=== PATIENT | male | born 1965 | race African-American/Black ===

== ENCOUNTER 2017-02-17 17:46 | Emergency (ER) | payer OTHER ==
[2017-02-17 17:51] VITALS: PULSE 103; TEMP 99.2; BMI 39.0
--- NOTE | 2017-02-17 18:44 | PDOC ---
History of Present Illness - General History Source: Patient Exam Limitations: No Limitations - History of Present Illness Initial Comments: 02/17/17 19:07 The patient is a 51 year old male, with a significant past medical history of hypertension, diabetes, who presents to the emergency department with complaints of an episode of vertigo earlier this morning, and nasal congestion. The patient reports that today when he woke up he had one episode of vertigo which lasted a few seconds before subsiding. He reports that later on in the day he stood up suddenly and felt a lightheaded sensation which he described as being off balance. He notes that he had an upper respiratory infection about a month ago which has not completely gone away. He has been taking mucinex for his congestion. He denies chest pain, shortness of breath, and headache. He denies fever, chills , nausea, vomit, diarrhea and constipation. Allergies: None Social history: occasional drinker, non smoker PCP: Dr Eden <Georgia Lora - Last Filed: 02/17/17 19:07> <Asya Lizarraga - Last Filed: 02/18/17 02:01> - General Chief Complaint: Lightheaded Stated Complaint: PAIN Time Seen by Provider: 02/17/17 18:12 Past History <Georgia Lora - Last Filed: 02/17/17 19:07> - Past Medical History COPD: No Diabetes: Yes HTN: Yes - Suicide/Smoking/Psychosocial Hx Smoking History: Never smoked Hx Alcohol Use: Yes (SOCIAL) Drug/Substance Use Hx: No Substance Use Type: None <Asya Lizarraga - Last Filed: 02/18/17 02:01> - Past Medical History Allergies/Adverse Reactions: Allergies Allergy/AdvReac Type Severity Reaction Status Date / Time No Known Allergies Allergy Verified 02/17/17 17:52 Home Medications: Ambulatory Orders Amlodipine Besylate [Norvasc -] 10 mg PO DAILY 02/17/17 Aspirin [Ecotrin] 81 mg PO DAILY 02/17/17 Atorvastatin Ca [Lipitor] 0 mg PO HS 02/17/17 Glimepiride 0 mg PO DAILY 02/17/17 Losartan Potassium [Cozaar -] 0 mg PO DAILY 02/17/17 Meclizine HCl [Antivert -] 25 mg PO QID PRN #12 tablet 02/17/17 Metformin HCl [Metformin HCl ER] 1,000 mg PO BID 02/17/17 Review of Systems - Review of Systems Able to Perform ROS?: Yes Comments:: 02/17/17 19:08 CONSTITUTIONAL: Absent: fever, no chills, no fatigue EYES: Absent: visual changes ENT: + Nasal congestion Absent: ear pain, no sore throat CARDIOVASCULAR: Absent: chest pain, no palpitations RESPIRATORY: Absent: cough, no SOB GI: Absent: abdominal pain, no nausea, no vomiting, no constipation, no diarrhea GENITOURINARY: Absent: dysuria, no frequency, no hematuria MUSCULOSKELETAL: Absent: back pain, no arthralgia, no myalgia SKIN: Absent: rash NEURO: +One episode of vertigo which lasted a few seconds, +lightheaded Absent: headache <Georgia Lora - Last Filed: 02/17/17 19:07> *Physical Exam - Vital Signs Last Vital Signs Temp Pulse Resp BP Pulse Ox 99.2 F 103 H 20 153/98 95 02/17/17 17:48 02/17/17 17:48 02/17/17 17:48 02/17/17 18:51 02/17/17 17:48 - Physical Exam Comments: 02/17/17 19:08 GENERAL: Well-appearing, well-nourished. No apparent distress. HEENT: Normocephalic, atraumatic. PERRL, EOM intact. CARDIOVASCULAR: Normal S1, S2. Regular rate and rhythm. PULMONARY: Clear to auscultation bilaterally. ABDOMEN: Soft, non-distended, non-tender. EXTREMITIES: Normal ROM in all four extremities. No gross deformities. SKIN: Warm, dry. No rash NEUROLOGICAL: No focal neurological deficits. <Georgia Lora - Last Filed: 02/17/17 19:07> - Vital Signs Last Vital Signs Temp Pulse Resp BP Pulse Ox 99.2 F 103 H 20 134/89 95 02/17/17 17:48 02/17/17 17:48 02/17/17 17:48 02/17/17 17:48 02/17/17 17:48 <Asya Lizarraga - Last Filed: 02/18/17 02:01> Heart Score/ECG Review - History History: Slightly suspicious - Electrocardiogram EKG: Normal - Risk Factors Risk Factors Heart Score: Yes Hx Hypertension, Yes Hx Diabetes Based on the list above the patient has:: 1-2 risk factors - ECG Intrepretation Rhythm: Regular Rhythm - [place]: Normal - P and [place] Delta Wave(s) Present: No WPW: No - ST and T Early Repolarization: No Non Specific ST-T Wave changes: Yes Flattened T Waves: No Prolonged Q-T Interval: No - ECG Impressions Normal ECG: Yes Non-specific ST Elevation: No Ischemic Changes: No Bradycardia: No Torsades delaney Pointes: No WPW: No <Asya Lizarraga - Last Filed: 02/18/17 02:01> Medical Decision Making - Medical Decision Making 02/18/17 01:57 51 yo male who has had some URI symptoms with nasal congestion, experienced vertigo after bending down to pick something up. He did not have vomiting and the episode was transient -on exam he had no ataxia,no motor weakness,no visual changes,no confusion ,no numbness or tingeing ,no facial droop or slurred speech -pt does have HTn and his BP usually is about 140/90 BGM was 180 imp labyrinthitis /URI/vertigo plan nasal decongestant/meclizine <Asya Lizarraga - Last Filed: 02/18/17 02:01> *DC/Admit/Observation/Transfer - Attestations Scribe Attestion: 02/17/17 19:10 Documentation prepared by HARISH Arreguin, acting as medical aides teacher for Asya Lizarraga MD. <Georgia Lora - Last Filed: 02/17/17 19:07> <Asya Lizarraga - Last Filed: 02/18/17 02:01> Diagnosis at time of Disposition: Nasal congestion, Vertigo Hypertension Qualifiers: Hypertension type: essential hypertension Qualified Code(s): I10 - Essential ( primary) hypertension - Discharge Dispostion Disposition: HOME Condition at time of disposition: Stable - Prescriptions Prescriptions: Meclizine HCl [Antivert -] 25 mg PO QID PRN #12 tablet PRN Reason: Vertigo - Referrals Referrals: Roberto Carlos Sanchez MD [Staff Physician] - - Patient Instructions Printed Discharge Instructions: DI for High Blood Pressure, DI for Vertigo, DI for Nasal Congestion Additional Instructions: please continue to take your high blood pressure medications as prescribed by your doctor Follow up with ENT if your symptoms persist Return for any worsening symptoms
[2017-02-17 18:52] VITALS: BP 153/98
[2017-02-17] MEDS ORDERED: MECLIZINE HCL 25 MG TABLET (FP) PO ONE (19:11)
[2017-02-17] MEDS ORDERED: MECLIZINE HCL 25 MG TABLET (FP) ONE (19:18)
--- NOTE | 2017-02-18 08:50 | EKG ---
Test Reason : Blood Pressure : / mmHG Vent. Rate : 097 BPM Atrial Rate : 097 BPM P-R Int : 140 ms QRS Dur : 086 ms QT Int : 364 ms P-R-T Axes : 041 -16 026 degrees QTc Int : 462 ms NORMAL SINUS RHYTHM NONSPECIFIC T WAVE ABNORMALITY ABNORMAL ECG NO PREVIOUS ECGS AVAILABLE CLINICAL CORRELATION IS RECOMMENDED Confirmed by JOSE E JACKSON MD ([id number]) on 02/18/2017 8:50:23 AM Referred By: Confirmed By:JOSE E JACKSON MD
== END 2017-02-17 19:35 | disposition home or self-care (01) ==
LOC: JER 17:46
DX: J06.9 Acute upper respiratory infection, unspecified (principal); R42 Dizziness and giddiness; I10 Essential (primary) hypertension; E11.9 Type 2 diabetes mellitus without complications; Z79.84 Long term (current) use of oral hypoglycemic drugs
CPT/HCPCS: 93005; 93010; 99281-25

== ENCOUNTER 2017-12-05 13:50 | Emergency (ER) | payer OTHER ==
[2017-12-05 14:08] VITALS: BP 135/87; PULSE 95; TEMP 97.8; BMI 41.1
--- NOTE | 2017-12-05 15:15 | PDOC ---
History of Present Illness - General Chief Complaint: Hematuria Stated Complaint: BLOOD IN URINE Time Seen by Provider: 12/05/17 15:03 History Source: Patient Exam Limitations: Clinical Condition - History of Present Illness Initial Comments: 12/05/17 15:09 Patient with history of diabetes and hypertension on meds present with complain of bloody urine since this morning. Patient denies any pain or urinary dysuria. Patient denies abdominal pain, flank pain with any other symptoms. Patient reported small amounts of blood in urine. Patient never had hematuria symptoms in the past Timing/Duration: 4-6 hours Past History - Past Medical History Allergies/Adverse Reactions: Allergies Allergy/AdvReac Type Severity Reaction Status Date / Time No Known Allergies Allergy Verified 12/05/17 14:05 Home Medications: Ambulatory Orders Amlodipine Besylate [Norvasc -] 10 mg PO DAILY 02/17/17 Aspirin [Ecotrin] 81 mg PO DAILY 02/17/17 Atorvastatin Ca [Lipitor] 0 mg PO HS 02/17/17 Glimepiride 0 mg PO DAILY 02/17/17 Losartan Potassium [Cozaar -] 0 mg PO DAILY 02/17/17 Meclizine HCl [Antivert -] 25 mg PO QID PRN #12 tablet 02/17/17 Metformin HCl [Metformin HCl ER] 1,000 mg PO BID 02/17/17 COPD: No Diabetes: Yes HTN: Yes - Immunization History Immunization Up to Date: Yes - Suicide/Smoking/Psychosocial Hx Smoking History: Never smoked Hx Alcohol Use: No Drug/Substance Use Hx: No Substance Use Type: None Review of Systems - Review of Systems Able to Perform ROS?: Yes Is the patient limited Maltese proficient: No Constitutional: No: Chills, Fever, Night Sweats, Unintentional Wgt. Loss Respiratory: No: Symptoms reported Cardiac (ROS): No: Symptoms Reported ABD/GI: No: Symptoms Reported, Blood Streaked Bowels, Nausea, Rectal Bleeding, Vomiting, Abdominal cramping : Yes: See HPI, Hematuria. No: Burning, Dysuria, Discharge, Frequency, Flank Pain, Testicular Mass, Testicular Swelling, Testicular Pain All Other Systems: Reviewed and Negative *Physical Exam - Vital Signs Last Vital Signs Temp Pulse Resp BP Pulse Ox 97.8 F 95 H 18 135/87 95 12/05/17 14:05 12/05/17 14:05 12/05/17 14:05 12/05/17 14:05 12/05/17 14:05 - Physical Exam Comments: 12/05/17 15:39 GENERAL: Well developed, well nourished. Awake and alert. No acute distress. CARDIOVASCULAR: Regular rate and rhythm. No murmurs, rubs, or gallops. Distal pulses are 2+ and symmetric. PULMONARY: No evidence of respiratory distress. Lungs clear to auscultation bilaterally. No wheezing, rales or rhonchi. ABDOMINAL: Soft. Non-tender. Non-distended. No rebound or guarding. No organomegaly. Normoactive bowel sounds. MUSCULOSKELETAL Normal range of motion at all joints. No bony deformities or tenderness. No CVA tenderness. EXTREMITIES: No cyanosis. No clubbing. No edema. No calf tenderness. SKIN: Warm and dry. Normal capillary refill. No rashes. No jaundice. NEUROLOGICAL: Alert, awake, appropriate. Gait is normal without ataxia. PSYCHIATRIC: Cooperative. Good eye contact. Appropriate mood and affect. General Appearance: Yes: Nourished, Appropriately Dressed. No: Apparent Distress ED Treatment Course - RADIOLOGY Radiology Studies Ordered: Category Date Time Status KUB (KID UR & BLAD) [RAD] Stat Radiology 12/05/17 15:06 Ordered Medical Decision Making - Medical Decision Making 12/05/17 15:40 Patient with history of diabetes and hypertension on medication present with complain of hematuria since this morning. Patient reported seen blood with urination. Patient with no complain of pain or discomfort. Clinical exam unremarkable and urinalysis showed small amount of blood otherwise unremarkable. KUB ordered to rule out kidney pathology. Patient be discharged with urology follow-up if normal KUB *DC/Admit/Observation/Transfer Diagnosis at time of Disposition: Painless hematuria - Discharge Dispostion Disposition: HOME Condition at time of disposition: Stable Decision to Admit order: No - Referrals Referrals: Joss Nails S.A. [Other Staff,non-medical] - - Patient Instructions Printed Discharge Instructions: DI for Hematuria Additional Instructions: Your urine test shows no bacteria except small amount of blood. X-ray of the bladder shows no problem with bladder or kidney stone. Follow-up will referred urology for possible viewing inside the bladder with a camera to evaluate blood in urine - Post Discharge Activity
[2017-12-05 15:20] LABS: URINE APPEARANCE CLEAR; URINE BILIRUBIN NEGATIVE (<2.0 mg/dL); URINE COLOR YELLOW; URINE GLUCOSE (UA) NEGATIVE (NEGATIVE); URINE KETONE NEGATIVE (NEGATIVE); URINE LEUK ESTERASE NEGATIVE (NEGATIVE); URINE NITRITE NEGATIVE (NEGATIVE); URINE PROTEIN NEGATIVE (NEGATIVE); URINE UROBILINOGEN 4.0 E.U/dl mg/dL (0.2-1.0)
[2017-12-05 15:32] LABS: EPI CELLS RARE /HPF (FEW); URINE MUCUS RARE
== END 2017-12-05 16:24 | disposition home or self-care (01) ==
LOC: JERFT 13:50
DX: R31.9 Hematuria, unspecified (principal); I10 Essential (primary) hypertension; E11.9 Type 2 diabetes mellitus without complications; Z79.84 Long term (current) use of oral hypoglycemic drugs
CPT/HCPCS: 74018-TC-FY; 81003; 81015; 87086; 99281-25

== ENCOUNTER 2018-07-06 15:13 | Emergency (ER) | payer OTHER ==
[2018-07-06 15:21] VITALS: TEMP 98.4; BMI 40.4
--- NOTE | 2018-07-06 15:29 | PDOC ---
History of Present Illness - General Chief Complaint: Chest Pain Stated Complaint: CHEST DISCOMFORT Time Seen by Provider: 07/06/18 15:29 - History of Present Illness Initial Comments: 07/06/18 15:48 The patient is a 53 year old male with a history of HTN, HLD, DM who presents for evaluation of chest pain. The patient reports onset of intermittent left sided chest pain that he describes as a soreness 1 day ago. He notes that the pain has improved since yesterday, however he continues to experience soreness of the chest. He states that his symptoms improved with movement and while "cleaning his room". He initially presented to an Urgent care today who referred him to the ED for further evaluation. He reports similar symptoms in the past but otherwise denies fevers, chills, SOB, nausea, vomiting, abdominal pain, numbness, tingling, weakness, or changes with urination or bowel movements. Past History - Past Medical History Allergies/Adverse Reactions: Allergies Allergy/AdvReac Type Severity Reaction Status Date / Time No Known Allergies Allergy Verified 07/06/18 15:21 Home Medications: Ambulatory Orders Amlodipine Besylate [Norvasc -] 10 mg PO DAILY 02/17/17 Aspirin [Ecotrin] 81 mg PO DAILY 02/17/17 Atorvastatin Ca [Lipitor] 0 mg PO HS 02/17/17 Glimepiride 0 mg PO DAILY 02/17/17 Losartan Potassium [Cozaar -] 0 mg PO DAILY 02/17/17 metFORMIN HCL [Metformin HCl ER] 1,000 mg PO BID 02/17/17 Omeprazole 0 mg PO DAILY 07/06/18 COPD: No Diabetes: Yes HTN: Yes - Immunization History Immunization Up to Date: Yes - Suicide/Smoking/Psychosocial Hx Smoking History: Never smoked Hx Alcohol Use: No Drug/Substance Use Hx: No Substance Use Type: None Review of Systems - Review of Systems Comments:: 07/06/18 15:50 Constitutional: No fevers, chills, fatigue, malaise HEENT: No Rhinorrhea, nasal congestion, visual changes Cardiovascular: Chest pain. No syncope, palpitations, lightheadedness Respiratory: No Cough, SOB, Hemoptysis, Gastrointestinal: No Abdominal pain, Nausea, Vomiting, Constipation, Diarrhea, Melena Genitourinary: No Dysuria, Frequency, Urgency, Hesitancy, Hematuria, Flank pain Musculoskeletal: No Myalgia, arthralgia Skin: No rashes, itching, bruising, pallor Neurologic: No Headache, Dizziness, Numbness, Weakness, or Tingling Psychiatric: No Hallucinations. No SI or HI *Physical Exam - Vital Signs Last Vital Signs Temp Pulse Resp BP Pulse Ox 98.4 F 83 18 130/87 99 07/06/18 15:18 07/06/18 15:18 07/06/18 15:18 07/06/18 15:18 07/06/18 15:18 - Physical Exam Comments: 07/06/18 15:51 General Appearance: Nourished. No Apparent Distress HEENT: No Pharyngeal Erythema, Tonsillar Exudate, Tonsillar Erythema Neck: No Cervical Lymphadenopathy Respiratory/Chest: Lungs Clear, Normal Breath Sounds. No Crackles, Rales, Rhonchi, Wheezing Cardiovascular: Regular Rhythm, Regular Rate. No Murmur, Gallops, Rubs Gastrointestinal/Abdominal: Normal Bowel Sounds, Soft. No Guarding, Rebound, Tenderness Musculoskeletal: No CVA Tenderness Extremity: Normal Capillary Refill Integumentary: Normal Color, Dry, Warm Neurologic: Fully Oriented, Alert, Normal Mood/Affect, Normal Response, Heart Score/ECG Review #1 ECG reviewed & interpreted by me at: 15:51 General ECG Interpretation: Sinus Rhythm, Normal Rate, Normal Intervals, No acute ischemic changes 07/06/18 15:51 HR 89 QRS 86 QTc 420 ED Treatment Course - LABORATORY CBC & Chemistry Diagram: 07/06/18 15:40 07/06/18 15:40 Medical Decision Making - Medical Decision Making 07/06/18 15:52 The patient is a 53 year old male with a history of HTN, HLD, DM who presents for evaluation of chest pain. Differential includes but is not limited to: ACS , Musculoskeletal, Infectious, Metabolic Derangement. Given the patient's history and physical exam, we will obtain a cbc, cmp, troponin, ekg, chest plain film to evaluate further. We will continue to monitor and reassess while here in the ED. 07/06/18 16:42 CBC, cmp, troponin are unremarkable. Chest plain film does not demonstrate any acute process. The patient was reassessed and reports improvement in their symptoms. The patient appears clinically well on exam. We are comfortable discharging the patient home in stable condition. Patient and family made aware of impression and plan, return precautions discussed including but not limited to worsening pain or symptoms, fevers, or signs of infection, chest pain, respiratory distress, inability to tolerate oral intake, dehydration, syncope, or neurologic changes. The patient is to follow up with PMD and field artillery operations specialist as recommended within 1 week, follow up information provided and the patient will call for an appointment. The patient is to take medications as instructed for duration of time and continue with supportive care, avoid triggers and precipitants. Patient is safe for outpatient follow-up. *DC/Admit/Observation/Transfer Diagnosis at time of Disposition: Chest pain Qualifiers: Chest pain type: unspecified Qualified Code(s): R07.9 - Chest pain, unspecified - Discharge Dispostion Disposition: HOME Condition at time of disposition: Stable Decision to Admit order: No - Referrals Referrals: Marko Wiseman MD [Staff Physician] - - Patient Instructions Printed Discharge Instructions: DI for Chest Pain Additional Instructions: 1) Please follow-up with your primary care doctor in the next 2-3 days. Please call tomorrow to schedule a follow up appointment. If you cannot follow up with your doctor within 1 week please return to the Emergency Department for any urgent issues. 2) Your laboratory / imaging results were normal here in the ER. You are to follow up with our electric razor mechanic Dr. Wiseman in 2-3 days to discuss your ER visit and further management of your symptoms. 3) If you have any worsening of symptoms or any other concerns please return to the ER immediately. Return if worsening symptoms including fevers, headache, vomiting, visual or hearing disturbances, abdominal pain, chest pain, shortness of breath, syncope, dehydration, inability to take things by mouth/vomiting, altered mental status, or worsening concerning symptoms. 4) Please continue taking your home medications as directed. Side effects may include upset stomach, abdominal pain, vomiting, or diarrhea. - Post Discharge Activity
[2018-07-06 15:51] LABS: BASO % 0.8 % (0-2.0); EOS % 1.7 % (0-4.5); HEMATOCRIT 44.7 % (35.4-49); HEMOGLOBIN 14.7 GM/dL (11.7-16.9); LYMPH % 46.5 % (8-40); MCH 29.9 pg (25.7-33.7); MCHC 32.9 g/dl (32.0-35.9); MEAN CELL VOLUME 90.9 fl (80-96); MEAN PLT VOLUME 6.8 fl (7.5-11.1); PLATELET COUNT 184 K/MM3 (134-434); RBC 4.92 M/mm3 (4.00-5.60); RDW 13.2 % (11.9-15.9); WHITE BLOOD COUNT 4.5 K/mm3 (4.0-10.0)
[2018-07-06 16:32] LABS: ALK PHOS 63 U/L (45-117); ANION GAP 8 MMOL/L (8-16); BILIRUBIN,TOTAL 0.7 mg/dL (0.2-1); BLOOD UREA NITROGEN 10 mg/dL (7-18); CALCIUM 8.6 mg/dL (8.5-10.1); CHLORIDE 103 mmol/L (98-107); CO2 29 mmol/L (21-32); GLUCOSE,RANDOM 110 mg/dL (74-106); POTASSIUM 3.9 mmol/L (3.5-5.1); SGOT/AST 24 U/L (15-37); SGPT/ALT 47 U/L (13-61); SODIUM 140 mmol/L (136-145); TOT PROT 7.3 g/dl (6.4-8.2)
[2018-07-06 17:01] VITALS: BP 118/81; PULSE 80
--- NOTE | 2018-07-06 17:08 | PDOC ---
Documentation entered by Dainlo Kline SCRIBE, acting as scribe for Asya Lizarraga MD. Asya Lizarraga MD: This documentation has been prepared by the yasmin, Danilo Kline SCRIBE, under my direction and personally reviewed by me in its entirety. I confirm that the documentation accurately reflects all work, treatment, procedures, and medical decision making performed by me. Attending Attestation - Resident Resident Name: Danilo Ferreira - ED Attending Attestation I have performed the following: I have examined & evaluated the patient, The case was reviewed & discussed with the resident, I agree w/resident's findings & plan, Exceptions are as noted - HPI HPI: 07/06/18 16:43 The patient is a 53 year old male with a past medical history of HTN, HLD, and diabetes here today for evaluation of chest pain. The patient reports that his intermittent left sided chest pain began yesterday. He reports that his chest pain felt better after he exercised and describes the pain currently as a soreness. Patient denies headache, lightheadedness. Denies fever, chills. Denies shortness of breath. Denies nausea, vomiting, diarrhea, abdominal pain. Denies lower extremity edema. Allergies: NKA - Physicial Exam PE: 07/06/18 16:50 GENERAL: Well developed, well nourished. Awake and alert. No acute distress. HEENT: Normocephalic, atraumatic. PERRLA, EOMI. No conjunctival pallor. Sclera are non- icteric. Moist mucous membranes. Oropharynx is clear. NECK: Supple. Full ROM. No JVD. Carotid pulses 2+ and symmetric, without bruits. No thyromegaly. No lymphadenopathy. CARDIOVASCULAR: Regular rate and rhythm. No murmurs, rubs, or gallops. Distal pulses are 2+ and symmetric. PULMONARY: No evidence of respiratory distress. Lungs clear to auscultation bilaterally. No wheezing, rales or rhonchi. ABDOMINAL: Soft. Non-tender. Non-distended. No rebound or guarding. No organomegaly. Normoactive bowel sounds. MUSCULOSKELETAL Normal range of motion at all joints. No bony deformities or tenderness. No CVA tenderness. EXTREMITIES: No cyanosis. No clubbing. No edema. No calf tenderness. SKIN: Warm and dry. Normal capillary refill. No rashes. No jaundice. NEUROLOGICAL: Alert, awake, appropriate. Cranial nerves 2-12 intact. No deficits to light touch and temperature in face, upper extremities and lower extremities. No motor deficits in the in face, upper extremities and lower extremities. Normoreflexic in the upper and lower extremities. Normal speech. Toes are down- going bilaterally. Gait is normal without ataxia. PSYCHIATRIC: Cooperative. Good eye contact. Appropriate mood and affect. - Medical Decision Making 07/06/18 16:56 pt's chest soreness started 24 hours ago and this has since abated without intervention ` -ekg was nsr withno evidence of acute ischemia -negative troponin cxr napd imp;atypical chest pain. pt's MD is in [facility] and he was encouraged to get outpt echo and stress test
--- NOTE | 2018-07-07 11:04 | EKG ---
Test Reason : Blood Pressure : / mmHG Vent. Rate : 089 BPM Atrial Rate : 089 BPM P-R Int : 146 ms QRS Dur : 086 ms QT Int : 346 ms P-R-T Axes : 042 -19 037 degrees QTc Int : 420 ms NORMAL SINUS RHYTHM NONSPECIFIC T WAVE ABNORMALITY ABNORMAL ECG WHEN COMPARED WITH ECG OF 17-FEB-2017 18:51, NO SIGNIFICANT CHANGE WAS FOUND Confirmed by KORIN COHEN MD ([id number]) on 07/07/2018 11:03:59 AM Referred By: Confirmed By:KORIN COHEN MD
== END 2018-07-06 17:00 | disposition home or self-care (01) ==
LOC: JER 15:13
DX: R07.9 Chest pain, unspecified (principal); I10 Essential (primary) hypertension; E11.9 Type 2 diabetes mellitus without complications; E78.5 Hyperlipidemia, unspecified; Z79.84 Long term (current) use of oral hypoglycemic drugs
CPT/HCPCS: 36415; 71045-TC-FY; 80053; 82550; 82553; 84484; 85025; 93005; 93010; 99282-25

== ENCOUNTER 2019-04-22 10:59 | Emergency (ER) | payer OTHER ==
[2019-04-22 11:14] VITALS: TEMP 98.2; BMI 39.0
--- NOTE | 2019-04-22 13:47 | PDOC ---
Documentation entered by Yesi Hinojosa SCRIBE, acting as scribe for Omar Quevedo MD. Omar Quevedo MD: This documentation has been prepared by the Micaela hoffman Adrianna, SCRIBE, under my direction and personally reviewed by me in its entirety. I confirm that the documentation accurately reflects all work, treatment, procedures, and medical decision making performed by me. History of Present Illness - General Chief Complaint: Shortness of Breath Stated Complaint: SENT BY DOC Time Seen by Provider: 04/22/19 11:34 - History of Present Illness Initial Comments: The patient is a 54 year old male, with a significant PMH, of HTN, HLD, DM, and sleep apnea, who presents to the ED for evaluation of SOB and chest pain since yesterday. Patient notes he had an episode of difficulty breathing yesterday, which he describes as being able to breathe but feeling like he couldnt. He reports feeling hungry for air, as if he isnt breathing enough. During that episode, the patient endorses associated diaphoresis and dull chest discomfort. Patient states the episode lasted for ~30 minutes. He additionally reports feeling more winded for longer than normal when going up stairs lately. Patient was seen in the ER 1 month ago for complaints of chest pain, and had a negative ACS workup (normal ECG, ECHO, and nuclear stress test). He has even followed up with GI for reflux symptoms. Patient has not yet followed up with a loss prevention research engineer. He went to an UC today for these complaints, and was advised to come to the ED for further evaluation. Allergies: NKA, NKDA Surgical History: None reported Social History: No toxic habits PCP: NOS Past History - Past Medical History Allergies/Adverse Reactions: Allergies Allergy/AdvReac Type Severity Reaction Status Date / Time No Known Allergies Allergy Verified 04/22/19 11:14 Home Medications: Ambulatory Orders Amlodipine Besylate [Norvasc -] 10 mg PO DAILY 02/17/17 Aspirin [Ecotrin] 81 mg PO DAILY 02/17/17 Glimepiride 0 mg PO DAILY 02/17/17 Losartan Potassium [Cozaar -] 0 mg PO DAILY 02/17/17 metFORMIN HCL [Metformin ER Osmotic] 1,000 mg PO BID 02/17/17 Aspirin Coated [Ecotrin -] 81 mg PO DAILY tablet.ec 02/26/19 Atorvastatin Ca [Lipitor] 20 mg PO HS #30 tablet 02/26/19 Fluticasone Prop 0.05% Nasal [Flonase -] 2 spray NS DAILY spray 02/26/19 Glimepiride 1 mg PO DAILY #30 tablet 02/26/19 Insulin Sliding Scale [Novolog Vial Sliding Scale -] 1 vial SQ TIDAC units 11/07 Pantoprazole Sodium [Protonix -] 40 mg PO BID #60 tablet.ec 02/26/19 COPD: No (SLEEP APNEA) Diabetes: Yes HTN: Yes Hypercholesterolemia: Yes - Immunization History Immunization Up to Date: Yes - Psycho Social/Smoking Cessation Hx Smoking History: Never smoked Have you smoked in the past 12 months: No Information on smoking cessation initiated: No Hx Alcohol Use: No Drug/Substance Use Hx: No Substance Use Type: None Review of Systems - Review of Systems Comments:: CONSTITUTIONAL: +Diaphoresis. No fever, no chills, no fatigue EYES: No visual changes ENT: No ear pain, no sore throat CARDIOVASCULAR: +Chest discomfort. No palpitations RESPIRATORY: +Difficulty breathing. +Feeling hungry for air. +Winded going up stairs. No cough. GI: No abdominal pain, no nausea, no vomiting, no constipation, no diarrhea GENITOURINARY: No dysuria, no frequency, no hematuria MUSKULOSKELETAL: No back pain, no joint pain, no myalgias SKIN: No rash NEURO: No headache *Physical Exam - Vital Signs Last Vital Signs Temp Pulse Resp BP Pulse Ox 98.2 F 85 20 146/99 94 L 04/22/19 11:09 04/22/19 11:04/22/19 11:04/22/19 11:04/22/19 11:09 - Physical Exam CONSTITUTIONAL: +Obese. Well-appearing; well-nourished; in no apparent distress HEAD: Normocephalic; atraumatic EYES: PERRL; EOM intact ENMT: External appears normal; normal oropharynx NECK: Supple; non-tender; no cervical lymphadenopathy CARD: Normal S1, S2; no murmurs, rubs, or gallops RESP: Normal chest excursion with respiration; breath sounds clear and equal bilaterally; no wheezes, rhonchi, or rales ABD: Soft, non-distended; non-tender; no palpable organomegaly, no palpable hernias EXT: Normal ROM in all four extremities; non-tender to palpation; distal pulses intact SKIN: Warm, dry, no rash NEURO: No focal neurological deficiencies. Heart Score/ECG Review - ECG Impressions Comment:: EKG performed at 11:06 on 04/22/2019 demonstrates rate of 83 bpm, normal sinus rhythm, nonspecific T wave abnormality. ED Treatment Course - RADIOLOGY Radiology Studies Ordered: Category Date Time Status CHEST PA & LAT [RAD] Stat Radiology 04/22/19 11:46 Completed Radiograph Interpretation: EXAM#: TYPE/EXAM: RESULT: [id number] RAD/CHEST PA LAT Chest: Shortness of breath 2 views of the chest reveal an elevated right hemidiaphragm with clear lungs, prominent knob, normal lv and normal heart. The angles are sharp and the soft tissues are excessive. There is vertebral wedging. Since 02/24/2019 there is no change of an adverse nature. Correlation recommended. Reported By: Roberto Carlos Felton MD 04/22/19 12:59 Medical Decision Making - Medical Decision Making 04/22/19 13:44 Patient is a well-appearing 54-year-old male with history of hyperlipidemia, diabetes, hypertension, sleep apnea presents to the ER after a self-limiting episode of shortness of breath which was similar in nature to previous episodes of dyspnea that was more severe and duration. Patient had recently been evaluated at [facility] for similar symptoms and underwent an extensive cardiac evaluation including a nuclear stress test which was normal and a normal echocardiogram. Patient also evaluated by GI and diagnosed with esophageal reflux. In the ER, patient is awake and alert, active saturation is noted to be 94 to 98% on room air depending on patient's position. Patient was noted to be obese. EKG shows diffuse T wave flattening which is unchanged from previous. Chest x-ray reveals elevated right hemidiaphragm which is also unchanged from previous. I do not suspect PE at this time. Patient's previous cardiac evaluation is reassuring and I do not suspect ACS. Patient has been advised to follow-up with pulmonology. Will provide referral. Will discharge. Discharge - Discharge Information Problems reviewed: Yes Clinical Impression/Diagnosis: Shortness of breath Condition: Stable Disposition: HOME - Follow up/Referral Referrals: ON STAFF,NOT [Primary Care Provider] - Roberto Carlos Zamudio MD [Staff Physician] - - Patient Discharge Instructions Patient Printed Discharge Instructions: DI for Shortness of Breath - Post Discharge Activity
[2019-04-22 14:22] VITALS: BP 138/89; PULSE 84
--- NOTE | 2019-04-23 14:04 | EKG ---
Test Reason : Blood Pressure : / mmHG Vent. Rate : 083 BPM Atrial Rate : 083 BPM P-R Int : 156 ms QRS Dur : 086 ms QT Int : 362 ms P-R-T Axes : 058 -09 009 degrees QTc Int : 425 ms NORMAL SINUS RHYTHM NONSPECIFIC T WAVE ABNORMALITY ABNORMAL ECG WHEN COMPARED WITH ECG OF 24-FEB-2019 22:48, NO SIGNIFICANT CHANGE WAS FOUND Confirmed by JONATHAN NARANJO MD ([id number]) on 04/23/2019 2:04:25 PM Referred By: Confirmed By:JONATHAN NARANJO MD
== END 2019-04-22 14:02 | disposition home or self-care (01) ==
LOC: SUPCPDRO 10:59 → JER 10:59
DX: R06.02 Shortness of breath (principal); I10 Essential (primary) hypertension; E78.5 Hyperlipidemia, unspecified
CPT/HCPCS: 71046-TC-FY; 93005; 93010; 99284-25

== ENCOUNTER 2023-03-22 16:20 | Emergency (ER) | payer OTHER ==
[2023-03-22 16:37] VITALS: BMI 35.5
[2023-03-22 17:08] LABS: VENOUS BASE EXCESS 1.6 mmol/L (-2-2); VENOUS O2 SATURATION 73.5 % (70-80); VENOUS PH 7.395 (7.310-7.410)
[2023-03-22 17:25] LABS: INR 1.19 (0.83-1.09); PROTHROMBIN TIME (PATIENT) 13.8 SEC (9.7-13.0)
[2023-03-22 17:27] LABS: ACTIVATED PTT 29.2 SECONDS (25.2-36.5); POTASSIUM 3.7 mmol/L (3.5-5.1)
[2023-03-22 17:29] LABS: ALBUMIN 3.8 g/dl (3.4-5.0); BLOOD UREA NITROGEN 17.7 mg/dL (7-18); CALCIUM 9.3 mg/dL (8.5-10.1)
[2023-03-22 17:30] LABS: BASO % 0.4 % (0-2.0); EOS % 0.7 % (0-4.5); HEMATOCRIT 42.4 % (35.4-49); HEMOGLOBIN 14.2 GM/dL (11.7-16.9); LYMPH % 28.4 % (8-40); MCH 31.6 pg (25.7-33.7); MCHC 33.6 g/dl (32.0-35.9); MEAN CELL VOLUME 94.1 fl (80-96); MEAN PLT VOLUME 7.2 fl (7.5-11.1); MONO % 7.5 % (3.8-10.2); PLATELET COUNT 165 10^3/uL (134-434); RBC 4.51 M/mm3 (4.00-5.60); RDW 12.9 % (11.9-15.9); WHITE BLOOD COUNT 6.5 K/mm3 (4.0-10.0)
[2023-03-22 17:32] LABS: CREATININE 1.2 mg/dL (0.55-1.3)
[2023-03-22 17:34] LABS: BILIRUBIN,TOTAL 0.7 mg/dL (0.2-1)
[2023-03-22 17:37] LABS: N-TERMINAL BNP 624.9 pg/ml (5-125)
[2023-03-22] MEDS ORDERED: HEPARIN INFUSION - 500 ML IVPB SCH (18:58)
[2023-03-22] MEDS ORDERED: HEPARIN NA (PORCINE) 5,000 UNITS/ML 1ML VIAL IVPUSH ONE (19:00)
[2023-03-22] MEDS ORDERED: HEPARIN INFUSION - 25,000 UNITS/500 ML INFUS.BAG IVPB SCH (19:01)
[2023-03-22] MEDS ORDERED: HEPARIN NA (PORCINE) 5,000 UNITS/ML 1ML VIAL ONE (19:03)
[2023-03-22] MEDS ORDERED: HEPARIN NA (PORCINE) 5,000 UNITS/ML 1ML VIAL IVPUSH PRN ×4 (19:03→19:07)
[2023-03-22] MEDS ORDERED: HEPARIN INFUSION - 25,000 UNITS/500 ML INFUS.BAG IVPB ONE (19:04)
[2023-03-22] MEDS ORDERED: HEPARIN - 25,000 UNIT in SODIUM CHLORIDE 495 ML IV SCH (19:15)
[2023-03-22] MEDS ORDERED: ACETAMINOPHEN 1000 MG/100 ML BAG IVPB ONE (19:20)
[2023-03-22] MEDS ORDERED: ACETAMINOPHEN INJECTION 100 ML IVPB ONE (20:11)
[2023-03-22 20:27] VITALS: BP 146/107; PULSE 114; RESP 23
[2023-03-22 20:30] VITALS: TEMP 98.8
== END 2023-03-22 20:57 | disposition short-term general hospital (02) ==
LOC: JER 16:20
PROC: 3E033NZ Introduction of Analgesics, Hypnotics, Sedatives into Peripheral Vein, Percutaneous Approach (ICD-10-PCS; principal; 2023-03-22)
PROC: 3E033GC Introduction of Other Therapeutic Substance into Peripheral Vein, Percutaneous Approach (ICD-10-PCS; 2023-03-22)
DX: R06.02 Shortness of breath (principal); I26.09 Other pulmonary embolism with acute cor pulmonale; J96.01 Acute respiratory failure with hypoxia; Z20.822 Contact with and (suspected) exposure to COVID-19
CPT/HCPCS: 0241U-QW; 36415; 71045-TC-FY; 71275-TC; 80053; 82803; 83880; 84484; 85025; 85610; 85730; 86850; 86900; 86901; 93005; 93010; 99291; J0131; J1644; Q9967